=== PATIENT | male | born 1985 | race Caucasian/White ===

== ENCOUNTER 2017-08-16 01:02 | Emergency (ER) | payer BC, OTHER ==
[2017-08-16 01:32] VITALS: BP 128/57; PULSE 93; TEMP 98.5; BMI 23.7
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
[2017-08-16] MEDS ORDERED: CLINDAMYCIN HCL 300 MG CAPSULE PO ONE (05:38)
[2017-08-16] MEDS ORDERED: CLINDAMYCIN HCL 150 MG CAPSULE (FP) ONE (05:44)
== END 2017-08-16 05:51 | disposition home or self-care (01) ==
LOC: JER 01:02
DX: S02.2XXA Fracture of nasal bones, initial encounter for closed fracture (principal); Y04.2XXA Assault by strike against or bumped into by another person, initial encounter; Y93.82 Activity, spectator at an event; Y92.89 Other specified places as the place of occurrence of the external cause; Y99.8 Other external cause status
CPT/HCPCS: 70450-TC; 70486-TC; 99281-25

== ENCOUNTER 2018-04-12 16:51 | Emergency (ER) | payer OTHER ==
[2018-04-12] MEDS ORDERED: ACETAMINOPHEN 325 MG TABLET (FP) PO ONE (17:13)
[2018-04-12] MEDS ORDERED: IBUPROFEN 400 MG TABLET (FP) PO ONE ×2 (17:13→17:26)
[2018-04-12 17:20] VITALS: BP 128/90; PULSE 61; TEMP 97.9; BMI 23.7
[2018-04-12] MEDS ORDERED: METHOCARBAMOL 500 MG TABLET PO ONE (17:25)
[2018-04-12] MEDS ORDERED: ACETAMINOPHEN 325 MG TABLET (FP) ONE (17:26)
[2018-04-12] MEDS ORDERED: METHOCARBAMOL 500 MG TABLET ONE ×2 (17:26→18:17)
--- NOTE | 2018-04-12 17:26 | PDOC ---
Attending Attestation - HPI HPI: The patient is a 32 year old male, with no significant past medical history, who presents to the emergency department with, lower back pain. 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 He notes pain and decreased ROM secondary to pain. He endorses icing his back, without relief prompting his visit to the ER. He denies any loss in sensation, tingling, or urinary/bowel incontinence. He denies any recent fevers, chills, headache or dizziness. He denies any recent nausea, vomit, diarrhea or constipation. He denies any recent chest pain or shortness of breath. He denies any recent dysuria, frequency, urgency or hematuria. Allergies: NKDA Primary Care Physician: Dr. 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 He is able to ambulate. - Physicial Exam PE: 04/12/18 17:27 tenderness to back is worse on the rt side of his back with passive leg raise than the left side 04/12/18 19:00 wnwd 32 yo male with low back pain head ncat neck supple lungs cta b/l cvs [id number] tenderness to paraspinal muscles of L4L5 abd soft,nontender ext no deformities neuro ambulatory ,axox3 skin warm and dry - Medical Decision Making 04/14/18 01:09 IMP MUSCULOSKELETAL STRAIN NSAIDS AND REST RECOMMENDED <Kelly Sheppard - Last Filed: 04/14/18 01:09> Attestations - Attestations 04/12/18 18:07 Documentation prepared by Harsh Sutton, acting as medical insurance claims processor for Kelly Sheppard MD. <Harsh Sutton - Last Filed: 04/12/18 18:07>
--- NOTE | 2018-04-12 17:34 | PDOC ---
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 He felt a pop when the incident happened around 1PM. Iced it and rested the rest of the day with no relief. Past History - Past Medical History Allergies/Adverse Reactions: Allergies Allergy/AdvReac Type Severity Reaction Status Date / Time No Known Allergies Allergy Verified 08/16/17 01:32 Home Medications: Ambulatory Orders Clindamycin HCl 300 mg PO QID #20 capsule 08/16/17 Oxymetazoline HCl [Afrin] 1 spray NS QID #1 spray 08/16/17 COPD: No - Suicide/Smoking/Psychosocial Hx Smoking History: Never smoked Have you smoked in the past 12 months: No Information on smoking cessation initiated: No Hx Alcohol Use: No Drug/Substance Use Hx: No Substance Use Type: None Review of Systems - Review of Systems Able to Perform ROS?: Yes Is the patient limited Tanzanian proficient: No Constitutional: No: Symptoms Reported HEENTM: No: Symptoms Reported Respiratory: No: Symptoms reported Cardiac (ROS): No: Symptoms Reported ABD/GI: No: Symptoms Reported : No: Symptoms Reported Musculoskeletal: Yes: See HPI *Physical Exam - Vital Signs Last Vital Signs Temp Pulse Resp BP Pulse Ox 97.9 F 61 18 128/90 100 04/12/18 17:10 04/12/18 17:10 04/12/18 17:10 04/12/18 17:10 04/12/18 17:10 - Physical Exam General Appearance: Yes: Nourished, Appropriately Dressed, Mild Distress HEENT: positive: EOMI, DEEP, Normal ENT Inspection Respiratory/Chest: positive: Lungs Clear, Normal Breath Sounds. negative: Chest Tender, Respiratory Distress Cardiovascular: positive: Regular Rhythm, Regular Rate, S1, S2 Gastrointestinal/Abdominal: positive: Normal Bowel Sounds, Flat, Soft. negative : Tender Musculoskeletal: positive: Other (leg raise worse on right side. pain on palpation of lumbar area. 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 Probable slipped disc. Will do xray of lumbar area, and pain control. 04/12/18 19:00 Mild narrowing of L5-S1 space. No fracture seen. Will refer to orthopedic surgery. *DC/Admit/Observation/Transfer Diagnosis at time of Disposition: Lumbar back pain - Discharge Dispostion Disposition: HOME Condition at time of disposition: Improved Decision to Admit order: No - Referrals Referrals: Jim Varela [Primary Care Provider] - Wally López MD [Staff Physician] - - Patient Instructions Printed Discharge Instructions: DI for Herniated Disc Additional Instructions: Follow up with orthopedic surgery if pain doesn't resolve. Come back to the ER for any new, worsening or concerning symptom. Take ibuprofen for pain every 8 hours as needed. - Post Discharge Activity Forms/Work/School Notes: Back to Work
== END 2018-04-12 19:12 | disposition home or self-care (01) ==
LOC: JER 16:51
DX: M54.5 Low back pain (principal); X50.0XXA Overexertion from strenuous movement or load, initial encounter; Y93.F2 Activity, caregiving, lifting; Y92.89 Other specified places as the place of occurrence of the external cause; Y99.0 Civilian activity done for income or pay
CPT/HCPCS: 72100-TC-FY; 99281-25

== ENCOUNTER 2018-06-11 12:20 | Emergency (ER) | payer BC, OTHER ==
[2018-06-11 12:31] VITALS: BP 116/71; PULSE 68; TEMP 97.8; BMI 25.0
--- NOTE | 2018-06-11 14:13 | PDOC ---
History of Present Illness - General Chief Complaint: Injury Stated Complaint: HEADACHE Time Seen by Provider: 06/11/18 13:31 History Source: Patient - History of Present Illness Initial Comments: 06/11/18 16:22 32-year-old male complaining of headache, left-sided neck pain and left clavicular pain and pain worse with movement. Patient reports that he was snowboarding yesterday and fell and hit head with LOC. Patient was seen by nAanda Yadav send to the ER for evaluation 06/11/18 16:37 Past History - Past Medical History Allergies/Adverse Reactions: Allergies Allergy/AdvReac Type Severity Reaction Status Date / Time No Known Allergies Allergy Verified 08/16/17 01:32 Home Medications: Ambulatory Orders Cyclobenzaprine HCl [Flexeril -] 10 mg PO BID #6 tablet 06/11/18 COPD: No - Suicide/Smoking/Psychosocial Hx Smoking History: Never smoked Have you smoked in the past 12 months: No Hx Alcohol Use: No Drug/Substance Use Hx: No Substance Use Type: None *Physical Exam - Vital Signs Last Vital Signs Temp Pulse Resp BP Pulse Ox 97.8 F 68 18 116/71 98 06/11/18 12:28 06/11/18 12:28 06/11/18 12:28 06/11/18 12:28 06/11/18 12:28 - Physical Exam General Appearance: Yes: Appropriately Dressed Respiratory/Chest: positive: Lungs Clear, Normal Breath Sounds Musculoskeletal: positive: Decreased Range of Motion (left shoulder), Other. negative: Vertebral Tenderness (no midline tenderness) Extremity: positive: Normal Capillary Refill, Normal Inspection, Normal Range of Motion Integumentary: positive: Normal Color, Dry, Warm Neurologic: positive: Fully Oriented, Alert, Normal Mood/Affect Moderate Sedation - Procedure Monitoring Vital Signs: Procedure Monitoring Vital Signs Temperature 97.8 F 06/11/18 12:28 Pulse Rate 68 06/11/18 12:28 Respiratory Rate 18 06/11/18 12:28 Blood Pressure 116/71 06/11/18 12:28 O2 Sat by Pulse Oximetry (%) 98 06/11/18 12:28 *DC/Admit/Observation/Transfer Diagnosis at time of Disposition: Concussion Qualifiers: Encounter type: initial encounter Loss of consciousness presence/duration: with LOC of 30 min or less Qualified Code(s): S06.0X1A - Concussion with loss of consciousness of 30 minutes or less, initial encounter Shoulder pain, left Qualifiers: Chronicity: acute Qualified Code(s): M25.512 - Pain in left shoulder - Discharge Dispostion Disposition: HOME - Prescriptions Prescriptions: Cyclobenzaprine HCl [Flexeril -] 10 mg PO BID #6 tablet - Referrals Referrals: Hung Menjivar MD [Staff Physician] - Call tomorrow Pierre Benton MD [Staff Physician] - Call tomorrow - Patient Instructions Printed Discharge Instructions: Postconcussion Syndrome Additional Instructions: rest and relax as much as possible follow up with a neurologist as soon as possible follow up with orthopedic as soon as possible you may ice, keep arm in sling. - Post Discharge Activity Forms/Work/School Notes: Back to Work
[2018-06-11] MEDS ORDERED: ACETAMINOPHEN 325 MG TABLET (FP) PO ONE (14:14)
[2018-06-11] MEDS ORDERED: ACETAMINOPHEN 325 MG TABLET (FP) ONE (14:17)
== END 2018-06-11 16:48 | disposition home or self-care (01) ==
LOC: JERFT 12:20
DX: S06.0X1A Concussion with loss of consciousness of 30 minutes or less, initial encounter (principal); W18.09XA Striking against other object with subsequent fall, initial encounter; Y93.23 Activity, snow (alpine) (downhill) skiing, snowboarding, sledding, tobogganing and snow tubing; Y92.39 Other specified sports and athletic area as the place of occurrence of the external cause; Y99.8 Other external cause status
CPT/HCPCS: 70450-TC; 71101-TC-LT-FY; 72125-TC; 73000-TC-LT-FY; 73030-TC-LT-FY; 99281-25

== ENCOUNTER 2018-06-15 20:55 | Emergency (ER) | payer BC, OTHER ==
--- NOTE | 2018-06-15 21:02 | PDOC ---
Rapid Medical Evaluation Chief Complaint: Bone Injury Time Seen by Provider: 06/15/18 20:59 Medical Evaluation: Allergies Allergy/AdvReac Type Severity Reaction Status Date / Time No Known Allergies Allergy Verified 08/16/17 01:32 06/15/18 21:00 I performed a brief in person evaluation. CC: first digit left hand injury HPI: Pt is a 32 Yo male who cut his first digit left hand on a saw HEAD RESIDENT. Tetanus is UTD. PE: Skin: Skin avulsion to the distal aspect of the first digit left hand Lungs: Clear Heart: RRR MS: Sensation intact. Psych: Appropriate affect Left first digit xray ordered. Pt will go to [facility] for further evaluation. Discharge Disposition - Diagnosis Laceration - Referrals - Patient Instructions - Post Discharge Activity
[2018-06-15 21:07] VITALS: BP 140/77; PULSE 98; TEMP 98; BMI 59.2
--- NOTE | 2018-06-15 21:17 | PDOC ---
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 Explains that he was working with a hand saw that he believed was broken, accidentally placed his left thumb tip on the blade, and simultaneously pushed the trigger to the saw with his other hand. He notes mild bleeding to the area after the incident, no numbness/ tingling/weakness. He denies having suffered any other injury as a result of this incident tonight. He took a shot of EtOH for the pain before coming in. Past History - Past Medical History Allergies/Adverse Reactions: Allergies Allergy/AdvReac Type Severity Reaction Status Date / Time No Known Allergies Allergy Verified 08/16/17 01:32 Home Medications: Ambulatory Orders Cephalexin [Keflex] 500 mg PO QID #28 capsule 06/16/18 COPD: No - Suicide/Smoking/Psychosocial Hx Smoking History: Never smoked Have you smoked in the past 12 months: No Hx Alcohol Use: No Drug/Substance Use Hx: No Substance Use Type: None Review of Systems - Review of Systems Able to Perform ROS?: Yes Comments:: 06/15/18 21:31 GEN: no fever, chills, malaise, generalized weakness, or weight change HEENT: no ear pain, sore throat, vision change, or eye pain CV: no chest pain, palpitations, lightheadedness, syncope, or edema RESP: no cough, wheezing, or SOB GI: no abdominal pain, nausea, vomiting, diarrhea, constipation, or white/black/ bloody stool : no dysuria, hematuria, incontinence, retention, bleeding, or discharge MSK: no neck/back pain, muscle weakness/pain, or joint swelling/pain NEURO: no headache, seizure, vertigo, numbness, tingling, or focal weakness PSYCH: no substance use, no behavior change SKIN: left thumb laceration, no jaundice, no rash ROS otherwise negative except as noted in HPI *Physical Exam - Vital Signs Last Vital Signs Temp Pulse Resp BP Pulse Ox 98.0 F 98 H 19 140/77 100 06/15/18 21:05 06/15/18 21:05 06/15/18 21:05 06/15/18 21:05 06/15/18 21:05 - Physical Exam Comments: 06/15/18 21:31 GENERAL: well-appearing, A/Ox4, no distress, answers questions appropriately HEENT: PERRLA, EOMI, moist mucous membranes NECK/BACK: no midline ttp, no spinal stepoff or deformity, no hematoma, full ROM , neck supple CARDIOVASCULAR: regular rate/rhythm, normal S1S2, no MGR, strong peripheral pulses, capillary refill <2 seconds, extremities wwp, no edema LUNGS/RESPIRATORY: no respiratory distress, CTAB GI/ABDOMEN: symmetric [id number], normoactive BS, soft, no ttp, no midline pulsatile masses : no CVA tenderness EXTREMITIES: no muscle atrophy, no acute deformity, no edema SKIN: left distal thumb laceration which is roughly 2.8 cm total, involves radial distal fragment of nail, distal avulsion not amenable to suturing but amenable to DermaBond, skin otherwise warm and dry, no pallor, no jaundice, no rash, no bruising, no skin breakdown, no cuts, no lesions NEUROLOGICAL: GCS 15, CN II-XII grossly intact, 5/5 strength proximally and distally, no facial droop Moderate Sedation - Procedure Monitoring Vital Signs: Procedure Monitoring Vital Signs Temperature 98.0 F 06/15/18 21:05 Pulse Rate 98 H 06/15/18 21:05 Respiratory Rate 19 06/15/18 21:05 Blood Pressure 140/77 06/15/18 21:05 O2 Sat by Pulse Oximetry (%) 100 06/15/18 21:05 Procedures - Laceration/Wound Repair Left 1st digit Wound Length: 2.6 to 5.0 cm Wound Explored: clean, no foreign body present Wound's Depth, Shape: linear Irrigated w/ Saline: Yes Anesthesia: 1% Lidocaine Amount of Anesthetic (ccs): 5 (thumb block and local) Wound Repaired With: Sutures (#10), Dermabond (to avulsion) Suture Size/Type: 5:0, proline Layer Closure: No Progress: tolerated well Medical Decision Making - Medical Decision Making 06/15/18 21:27 Pt p/w laceration to the left thumb tip sustained by dirty hand saw. No e/o tendon, ligament, or bony injury; lac is through the distal portion of the nail on radial side. No obvious FB or debris. Last tDaP was 2013. Initial Vital Signs Temp Pulse Resp BP Pulse Ox 98.0 F 98 H 19 140/77 100 06/15/18 21:05 06/15/18 21:05 06/15/18 21:05 06/15/18 21:05 06/15/18 21:05 Exam: As noted in Physical Exam section. DDX IBNLT: Simple skin/soft tissue laceration, tendon/ligament involvement, bony involvement, larger blood vessel injury, retained FB, wound contamination with risk for infection, etc. W/U ordered: XR to r/o FB and bony involvement TX ordered: tDaP update, abx dose XR: No FB, no fracture or other bony involvement. Laceration numbed, cleaned, repaired without issue as noted in Procedures section. Hemostasis achieved, good approximation, Bacitracin applied and wound dressed. DISCHARGE The Pts laceration has been repaired without issue, ppx given as indicated. They do require abx for this hand laceration. E-Rx is sent to their pharmacy for abx and they will take the whole course as Rx. Workup is not concerning for emergency-level pathology at this time. The Pt is appropriate for discharge with close outpatient follow up. They are comfortable with this plan and will follow up with their primary care provider in 1-3 days. Specific return precautions are discussed and they will come back to the ER if necessary. *DC/Admit/Observation/Transfer Diagnosis at time of Disposition: Laceration, Skin avulsion - Discharge Dispostion Disposition: HOME Condition at time of disposition: Stable Decision to Admit order: No - Prescriptions Prescriptions: Cephalexin [Keflex] 500 mg PO QID #28 capsule - Referrals Referrals: Jim Varela [Primary Care Provider] - - Patient Instructions Printed Discharge Instructions: DI for Suture Removal, DI for Laceration Repair Additional Instructions: You were seen in the ER for a skin laceration. We did an exam, imaging studies, cleaned and repaired the laceration, and made sure your tetanus vaccination was up to date (it already was). After our assessment, we do not believe you are having a medical emergency at this time, and we believe you are safe to go home. Please read the information in this packet on how to care for your laceration. Keep the dressing on your wound for 24 hours and keep this dressing clean and dry. After 24 hours, you can take the dressing off and you can shower and get the wound wet, but do not scrub the wound and do not soak it in water. Do not go swimming or take a bath or submerge the wound in standing water. Do not use any ointment or cream on the wound because there is DermaBond on part of it, and doing that would cause the DermaBond to dissolve too early. supervisor taping and take the antibiotics we are sending to your pharmacy to prevent serious hand /thumb infection. Please follow up with your primary care provider to have the sutures removed in 7 days, or return here to the ER to have them removed. If you have any new or worsening symptoms, especially increasing pain and redness to the area or other signs of infection like fever, please come back to the ER at any time (24 hours a day). If you are having severe or life threatening symptoms, or symptoms that make it unsafe to drive or have someone drive you, please call 911. - Post Discharge Activity
[2018-06-15] MEDS ORDERED: LIDO 2%/EPI 1:200000 PRESRVFRE (20 ML SDVIAL) INF ONE (22:13)
--- NOTE | 2018-06-15 22:23 | PDOC ---
Attending Attestation - Resident Resident Name: Anu Sidhu - ED Attending Attestation I have performed the following: I have examined & evaluated the patient, The case was reviewed & discussed with the resident, I agree w/resident's findings & plan, Exceptions are as noted - HPI HPI: 06/15/18 22:40 The patient is a 32 year old male with no significant past medical history who presents to the emergency department with a left thumb laceration since earlier this evening. The patient reports that he was at home using a power saw when he injured his finger. He states that he accidentally placed his left thumb tip on the blade and started the saw. He reports that he believes that the saw was broken. He denies any weakness, numbness, or tingling sensation in the finger. He denies any other symptoms or complaints. It is noted that the patient is right hand dominant. Tdap updated 2014. - Physicial Exam PE: 06/15/18 22:40 agree with resident exam - Medical Decision Making 06/15/18 22:40 32yo M presents to the ED with L thumb distal lac after saw injury Tdap up to date XR negative for FB Plan for finger block, irrigate under pressure, soak in lido/epi, lac repair 06/16/18 00:[address] Sidhu, procedure as per her note Pain well controlled, no numbness, tingling or weakness in the finger Pt stable for DC home I discussed the physical exam findings, ancillary test results and final diagnoses with the patient. I answered all of the patient's questions. The patient was satisfied with the care received and felt comfortable with the discharge plan and treatment plan. The patient will call their primary care physician within 24 hours to arrange follow-up and will return to the Emergency Department with any new, persistent or worsening symptoms.
[2018-06-16] MEDS ORDERED: CEPHALEXIN MONOHYDRATE 500 MG CAPSULE (UD) PO ONE (00:05)
== END 2018-06-16 00:40 | disposition home or self-care (01) ==
LOC: JER 20:55
PROC: 0JQK0ZZ Repair Left Hand Subcutaneous Tissue and Fascia, Open Approach (ICD-10-PCS; principal; 2018-06-15)
DX: S61.012A Laceration without foreign body of left thumb without damage to nail, initial encounter (principal); W29.3XXA Contact with powered garden and outdoor hand tools and machinery, initial encounter; Y93.89 Activity, other specified; Y92.89 Other specified places as the place of occurrence of the external cause; Y99.8 Other external cause status
CPT/HCPCS: 73140-TC-LT-FY; 99283-25

== ENCOUNTER 2019-03-14 12:19 | Emergency (ER) | payer OTHER, BC ==
[2019-03-14 12:25] VITALS: BP 126/85; PULSE 62; TEMP 98.2; BMI 23.1
[2019-03-14] MEDS ORDERED: ACETAMINOPHEN 500 MG TABLET (FP) ONE (12:50)
[2019-03-14] MEDS ORDERED: CYCLOBENZAPRINE HCL 10 MG TABLET (FP) ONE (12:50)
[2019-03-14] MEDS ORDERED: ACETAMINOPHEN 500 MG TABLET (FP) PO ONE (13:01)
[2019-03-14] MEDS ORDERED: CYCLOBENZAPRINE HCL 10 MG TABLET (FP) PO ONE (13:01)
--- NOTE | 2019-03-14 13:01 | PDOC ---
History of Present Illness - General Chief Complaint: Back Pain Stated Complaint: LOWER BACK PAIN Time Seen by Provider: 03/14/19 12:29 History Source: Patient - History of Present Illness Occurred: reports: last week Pain Location: reports: back Past History - Past Medical History Allergies/Adverse Reactions: Allergies Allergy/AdvReac Type Severity Reaction Status Date / Time No Known Allergies Allergy Verified 03/14/19 12:25 Home Medications: Ambulatory Orders Cephalexin [Keflex] 500 mg PO QID #28 capsule 06/16/18 Cyclobenzaprine HCl [Flexeril 10 mg] 10 mg PO BID #9 tablet 03/14/19 Naproxen 500 mg PO BID #14 tablet 03/14/19 COPD: No Other medical history: herniated disc/lyme - Psycho Social/Smoking Cessation Hx Smoking History: Never smoked Have you smoked in the past 12 months: No Information on smoking cessation initiated: No Hx Alcohol Use: No Drug/Substance Use Hx: No Substance Use Type: None Review of Systems - Review of Systems Constitutional: No: Chills, Fever : No: Burning, Dysuria, Hematuria Musculoskeletal: Yes: Back Pain Neurological: No: Numbness, Tingling, Weakness *Physical Exam - Vital Signs Last Vital Signs Temp Pulse Resp BP Pulse Ox 98.2 F 62 18 126/85 100 03/14/19 12:21 03/14/19 12:21 03/14/19 12:21 03/14/19 12:21 03/14/19 12:21 - Physical Exam General Appearance: Yes: Appropriately Dressed. No: Apparent Distress HEENT: positive: Normal Voice Neck: positive: Supple Gastrointestinal/Abdominal: positive: Soft. negative: Tender Musculoskeletal: positive: Vertebral Tenderness (to R lower back). 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 No acute sensory changes, lower extremity weakness saddle anesthesia or bladder or bowel incontinence. Took 800 mg of Motrin prior to arrival with no significant improvement per patient see exam Acute on chronic LBP No red fags today -Dc w/ pain control -PMD f/u as needed Discharge - Discharge Information Problems reviewed: Yes Clinical Impression/Diagnosis: Back pain Qualifiers: Back pain location: low back pain Chronicity: acute Back pain laterality: right Sciatica presence: without sciatica Qualified Code(s): M54.5 - Low back pain Disposition: HOME - Additional Discharge Information Prescriptions: Cyclobenzaprine HCl [Flexeril 10 mg] 10 mg PO BID #9 tablet Naproxen 500 mg PO BID #14 tablet - Follow up/Referral - Patient Discharge Instructions Patient Printed Discharge Instructions: Low Back Pain Additional Instructions: Take medication as prescribed for your pain and follow-up with your PMD as needed - Post Discharge Activity Work/Back to School Note: Back to Work
== END 2019-03-14 13:00 | disposition home or self-care (01) ==
LOC: JERFT 12:19
DX: M54.5 Low back pain (principal); X50.9XXA Other and unspecified overexertion or strenuous movements or postures, initial encounter; Y93.89 Activity, other specified; Y92.89 Other specified places as the place of occurrence of the external cause; Y99.0 Civilian activity done for income or pay
CPT/HCPCS: 99281-25

== ENCOUNTER 2021-06-30 08:31 | Emergency (ER) | payer OTHER ==
[2021-06-30 08:39] VITALS: TEMP 97; BMI 24.3
[2021-06-30] MEDS ORDERED: DIPHTH,PERTUSS(ACELL),TET 0.5 ML DISP.SYRIN IM ONE ×4 (08:51→09:17)
[2021-06-30] MEDS ORDERED: IBUPROFEN 400 MG TABLET (FP) PO ONE ×2 (08:52→08:57)
[2021-06-30] MEDS ORDERED: ACETAMINOPHEN 325 MG TABLET (FP) PO ONE (09:21)
[2021-06-30] MEDS ORDERED: ACETAMINOPHEN 325 MG TABLET (FP) ONE (09:28)
[2021-06-30] MEDS ORDERED: BACITRACIN 0.9 GM PACKET ONE (09:51)
[2021-06-30 10:11] VITALS: BP 131/74; PULSE 66
== END 2021-06-30 10:45 | disposition home or self-care (01) ==
LOC: JER 08:31
PROC: 0H9QXZZ Drainage of Finger Nail, External Approach (ICD-10-PCS; principal; 2021-06-30)
PROC: 3E0234Z Introduction of Serum, Toxoid and Vaccine into Muscle, Percutaneous Approach (ICD-10-PCS; 2021-06-30)
DX: S62.637A Displaced fracture of distal phalanx of left little finger, initial encounter for closed fracture (principal); S60.152A Contusion of left little finger with damage to nail, initial encounter; W22.8XXA Striking against or struck by other objects, initial encounter
CPT/HCPCS: 73130-TC-LT-FY; 90715; 99283-25

== ENCOUNTER 2025-02-07 20:36 | Emergency (ER) | payer OTHER ==
[2025-02-07 20:40] VITALS: BP 130/75; PULSE 77; RESP 18; TEMP 98; BMI 22.4
[2025-02-07] MEDS ORDERED: ACETAMINOPHEN 500 MG TABLET (FP) ONE (21:20)
[2025-02-07] MEDS: ACETAMINOPHEN 500 MG TABLET (FP) PO ONE (21:22)
[2025-02-07] MEDS: SODIUM CHLORIDE 1,000 ML IV STA (21:22)
== END 2025-02-07 22:50 | disposition home or self-care (01) ==
LOC: JERFT 20:36
PROC: 3E0337Z Introduction of Electrolytic and Water Balance Substance into Peripheral Vein, Percutaneous Approach (ICD-10-PCS; principal; 2025-02-07)
DX: M54.50 Low back pain, unspecified (principal); G89.29 Other chronic pain
CPT/HCPCS: 99283-25